=== PATIENT | male | born 1945 | race Caucasian/White ===

== ENCOUNTER 2017-11-22 07:29 | Day surgery (SDC) | payer MEDICARE ==
[~2017-11-22] VITALS: Ht 177.8 cm; Wt 93.6 kg
[2017-11-22] VITALS (18 sets, daily range): BP systolic 116–158; BP diastolic 58–99
[2017-11-22] MEDS ORDERED: normal saline 1000ml 1,000 ML IV SCH (07:50)
[2017-11-22] MEDS ORDERED: AMLO5TAB PO (08:08)
[2017-11-22] MEDS ORDERED: ATOR10TA87 PO (08:08)
[2017-11-22] MEDS ORDERED: NAPR220T67 PO (08:08)
[2017-11-22 08:47] LABS: BASOPHILS % (AUTO) 0.5 % (0-1); EOSINOPHILS # (AUTO) 0.3 X10'3 (0-0.9); EOSINOPHILS % (AUTO) 5.6 % (0-6); HEMATOCRIT 42.8 % (42.0-52.0); LYMPHOCYTES # (AUTO) 1.6 X10'3 (1.1-4.8); LYMPHOCYTES % (AUTO) 32.2 % (21-51); MEAN CORPUSCULAR HEMOGLOBIN 33.2 PG (27.0-31.0); MEAN CORPUSCULAR HGB CONC 35.1 % (33.0-36.5); MEAN CORPUSCULAR VOLUME 94.6 FL (78-98); MEAN PLATELET VOLUME 9.3 FL (7.4-10.4); MONOCYTES # (AUTO) 0.4 X10'3 (0-0.9); NEUTROPHILS # (AUTO) 2.8 X10'3 (1.8-7.7); NEUTROPHILS % (AUTO) 54.7 % (42-75); PLATELET COUNT 144 X10'3 (140-440); RED BLOOD COUNT 4.52 X10'6 (4.70-6.10); RED CELL DISTRIBUTION WIDTH 13.7 % (11.5-14.5); WHITE BLOOD COUNT 5.1 X10'3 (4.5-11.0)
[2017-11-22] MEDS ORDERED: morphine 2 MG/ML inj. syringe IV PRN (09:15)
[2017-11-22] MEDS ORDERED: midazolam 2 mg/2 ml injection IV PRN (09:50)
[2017-11-22] MEDS ORDERED: LIDOcaine 1%/PF (10mg/ml) 5ml vial SQ ONE (09:50)
[2017-11-22] MEDS ORDERED: fentaNYL/PF 50MCG/1 ML 2ML syringe IV PRN (09:50)
[2017-11-22] MEDS ORDERED: fentaNYL/PF 50MCG/1 ML 2ML syringe ONE (10:21)
[2017-11-22] MEDS ORDERED: midazolam 2 mg/2 ml injection ONE (10:21)
== END 2017-11-22 13:00 | disposition home or self-care (01) ==
LOC: SSTAY O 07:29
PROVIDERS: ATTEND Radiology Diagnostic Radiology
DX: M79.89 Other specified soft tissue disorders (principal); E78.00 Pure hypercholesterolemia, unspecified; I10 Essential (primary) hypertension; Z85.46 Personal history of malignant neoplasm of prostate; Z98.890 Other specified postprocedural states; Z79.899 Other long term (current) drug therapy; Z87.891 Personal history of nicotine dependence; Z90.89 Acquired absence of other organs
CPT/HCPCS: 32405; 36415; 71045; 77012; 85025; 99152; 99153; J2250; J3010; J7030; 88173; 88305; 88341; 88342

== ENCOUNTER 2022-11-01 13:15 | Emergency (ER) | payer MEDICARE ==
[~2022-11-01] VITALS: Ht 177.8 cm; Wt 81.0 kg
[~2022-11-01 13:15] MED LIST: AMLO5TAB PO; ATOR10TA87 PO; NAPR220T67 PO
[2022-11-01 13:58] LABS: CLARITY,URINE CLOUDY (Clear); COLOR,URINE YELLOW (Yellow); GLUCOSE, URINE NEGATIVE (Neg); KETONES,URINE NEGATIVE (Neg); LEUKOCYTE ESTERASE ,URINE MODERATE (Neg); NITRITES, URINE POSITIVE (Neg); OCCULT BLOOD,URINE LARGE (Neg); PROTEIN,URINE 100 mg/dl (Neg); UROBILINOGEN,URINE 0.2 E.U/dL (0.2-1.0)
[2022-11-01 14:00] VITALS: BP 149/89
[2022-11-01 14:04] LABS: UA COLLECTION TYPE VOIDED
[2022-11-01 14:05] LABS: BACTERIA,URINE 1+ /HPF (Neg); RBC,URINE 50-100 /HPF (0-2); WBC,URINE TNTC /HPF (0-4)
[2022-11-01 14:06] LABS: MUCUS STRANDS NONE SEEN /LPF (Neg); SQUAMOUS EPITHELIAL CELL,UR NONE SEEN /LPF (FEW); TRANSITIONAL EPI CELLS,URINE FEW /HPF; WBC CLUMPS,URINE MODERATE /HPF (NEGATIVE)
[2022-11-01] MEDS ORDERED: sulfamethoxazole/trimethoprim DS (800/160mg) tablet PO ONE (15:05)
[2022-11-01] MEDS ORDERED: SULF1TAB49 PO (15:09)
== END 2022-11-01 16:07 | disposition home or self-care (01) ==
LOC: ER 13:15
DX: N39.0 Urinary tract infection, site not specified (principal); R31.9 Hematuria, unspecified; R50.9 Fever, unspecified; R11.0 Nausea; Z86.711 Personal history of pulmonary embolism; Z85.46 Personal history of malignant neoplasm of prostate; Z98.890 Other specified postprocedural states; Z79.2 Long term (current) use of antibiotics; Z79.899 Other long term (current) drug therapy
CPT/HCPCS: 81001; 87077; 87088; 87186; 99284